=== PATIENT | female | born 1960 | race Caucasian/White ===

== ENCOUNTER 2020-06-12 15:41 | Inpatient (IN) | payer OTHER, SELFPAY ==
--- NOTE | 2020-06-12 16:25 | MHC.CARE ---
CARE team presented to ED waiting room to facilitate transfer/admission to for this patient. CARE team attempted to confirm patient's identity by asking last name and date of . Patient made eye contact but stared blankly. Did not respond verbally despite multiple attempts. insole and outsole preparer confirmed that patient has not been responding to any questions. CARE team explained the CV and patient continued to stare. Unable to complete conditional voluntary at this time. CARE team facilitated completion of section 12b for admission. insole and outsole preparer escorted patient to with CARE team following.
[2020-06-12 17:29] VITALS: BP 129/75; PULSE 63; RESP 18; TEMP 36.6; O2SAT 98
--- NOTE | 2020-06-12 23:09 | PC.ADMIT ---
pt. is a 59 year old white Armenian peaking female who [place] [facility] [place] [facility] from [facility] ed at approx. [id number]. pt. is covid neg., utox negative, she was transported on a 12 a section by ems. she is is a cv, initially she was seen by [facility] crisis. her sister reported pt. od on unknown type and amount of medication. pt. later stated it was likely her dogs medications and she did this in an attempt to end her life. pt. has not been compliant with her medications given by her pcp per [facility]. pt. reported daily panic attacks to the extent of feeling afraid of everything , i don't trust anyone . Pt. stated i feel i can't live anymore . pt. stated worsened anxiety with panic and lack of sleep has caused her to feel like taking her life. pt.s memories of loses and her elderly dog being sick are impacting her ability to cope. pt. has a hx of paranoia, she had 3 prior psych admissions all at [facility] from 2018 until most recently 04/25/20. pt. has two traumatic losses. her daughter at a alliance party in 2006 and pts. passed in 2018. pt. has an adult son and also a grandson whom she helped raise. when pt. came to 5 she was withdrawn, silent with her eyes closed. when t/w ask her questions. pt. was blunted, flat, she was dishevel. pt. cried a few times in between with her eyes closed throughout the attempted admission process. pt. did not want to eat dinner. she did not sign any consent forms, she is on 15 min safety checks, medications were verified by pharmacy and placed by dr. colton oliva.
[2020-06-13 06:02] VITALS: BP 123/65; PULSE 60; RESP 16; TEMP 36.1; O2SAT 95
--- NOTE | 2020-06-13 09:13 | HO.PSYADMNOT ---
HPI Chief Complaint: Major depressive disorder Sources of Information: patient interviewed, chart reviewed and crisis/core team assessment reviewed HPI Narrative: 59 year old woman who was referred for admission by [facility] crisis. She had been brought to [facility] by her sister due to increasing depression. While at the intake it was revealed that she had taken an overdose of her dog's medication. She was taken to [facility] and medically cleared. Individual has been struggling with an increase in depression and paranoia over the last several years. Her daughter was murdered in 2006, her in 2018. Her 's family cut ties with her. She has one adult son who is in contact with her and she has helped raise her daughter's daughter. In the last 2l months she has been hospitalized three times at [facility]. She has not recompensated enough and has been increasingly despairing. On arrival to the unit she was virtually mute. She gave little information though she did warm up. She has been taking very poor care of herself, with poor ADLs and poor intake. She is unable to say whether medications have helped. Past Psychiatric History: 3 admissions to [facility] No current providers, according to patient Medical Evaluation Reviewed: Hospitalist Lynn Pending [facility] Family History: Unknown Social History: Works at [employer] as PT Lives with her grand-daughter Substance History: Denies Trauma History: Significant losses Diagnostics Vital Signs (24Hr): Vital Signs - 24 hr 06/12/20 17:29 06/13/20 06:02 Temperature 97.8 F 96.9 F Pulse Rate 63 60 Respiratory Rate 18 16 Blood Pressure 129/75 123/65 Pulse Oximetry 98 95 Meds/Allergies Meds Home Medications Medication Instructions Recorded Confirmed Type No Known Home Meds 06/12/20 06/12/20 History aripiprazole 1 tab PO DAILY 06/12/20 06/12/20 History lisinopril 1 tab PO DAILY 06/12/20 06/12/20 History lisinopril-hydrochlorothiazide 1 tab PO DAILY 06/12/20 06/12/20 History lorazepam 1 tab PO BID 06/12/20 06/12/20 History pravastatin 10 mg PO DAILY 06/12/20 06/12/20 History sertraline 100 mg PO DAILY 06/12/20 06/12/20 History Allergies Allergies Allergy/AdvReac Type Severity Reaction Status Date / Time No Known Allergies Allergy Verified 06/13/20 09:35 Mental Status Exam Mental Status Exam Patient Appearance: Fatigued and Disheveled Patient Orientation: Person and Place Level of Consciousness: Drowsy Patient Behavior: Guarded, Passive and Timid Mood Description: Suspicious Affect Description: Suspicious and Constricted Ability to Follow Directions: Fair Speech Pattern: Impoverished and Soft-Spoken Hallucinations: None Delusions: Paranoid Ideation Thought Process: Rumination and Slowed Thinking Thought Content: positive for Circumstantial, negative for Suicidal Ideation and negative for Homicidal Ideation Depressive Symptoms: Diff. Making Decisions, Crying Spells, Loss of Int. in Activity, Feelings of Worthlessness, Hopelessness, Unhappiness and Thoughts of /Suicide Abnormal Motor Activity Signs and Symptoms: Psychomotor Retardation Judgement: Poor Assessment & Plan Assessment & Plan (1) Major depressive disorder, recurrent severe without psychotic features: Status: Acute Code(s): F33.2 - Major depressive disorder, recurrent severe without psychotic features Assessment and Plan: Increase sertraline Add seroquel Collect collateral history Patient educated on: diagnosis and medication risk/benefits Informed Consent: further education needed Reason for continued inpatient stay Substantial Risk for: harm to self, inability to function and rapid decompensation
[2020-06-13 09:35] VITALS: BMI 35.4
[2020-06-13] MEDS: LORazepam 1 MG TABLET PO ×2 (12:01→21:24)
[2020-06-13] MEDS: Sertraline HCL 50 MG TABLET 150 MG PO (14:12)
[2020-06-13 14:13] VITALS: BP 104/64; PULSE 77
[2020-06-13] MEDS: Pravastatin Sodium 40 MG TABLET PO (14:13)
[2020-06-13 18:00] VITALS: BP 121/68; PULSE 68; TEMP 36.7
--- NOTE | 2020-06-13 20:19 | PM.IMCN ---
History of Present Illness Data of Consult Service Date: 06/13/20 Requesting physician: Missy Hairston Primary Care Provider: Meera Rossi MD [facility] Reason for consult: Medical consult 59-year-old woman admitted to for behavioral health. She has a history of hypertension and hyperlipidemia. At this time she has no acute medical problems. She denies chest pain, shortness of breath, nausea, vomiting. She has been able to eat and drink. Her vital signs are stable. Review of Systems Review of Systems: Denies any recent fever chills or decrease in appetite respiratory denies any shortness of breath coverage production cardiovascular no chest pain gastrointestinal no abdominal pain nausea vomiting or diarrhea musculoskeletal chronic left knee pain all other systems reviewed are negative [facility] Medical History (Updated 06/13/20 @ 20:28 by Shazia Thibodeaux NP) Depression HTN (hypertension), benign Hyperlipidemia Functional capacity: independent ambulation Family History (Updated 06/13/20 @ 20:30 by Shazia Thibodeaux NP) Other CAD (coronary artery disease) Cancer Diabetes mellitus Surgical History (Updated 06/13/20 @ 20:29 by Shazia Thibodeaux NP) H/O tubal ligation Social History Household Members: Other Household Members Other:: grandson Housing: House Do you presently have visiting nurse or other home services: No Smoking Status: Former smoker Smoking Quit Date: 2009 Use of substances other than those prescribed or required for medical reasons: No Currently Displaying Signs/Symptoms of Drug Intoxication Withdrawal: No Have you been hit, kicked, punched, or otherwise hurt by someone within the past year? If so, by whom?: No Do you feel safe in your current relationship?: No Current Relationship Is there a partner from a previous relationship who is making you feel unsafe now?: No Are you made to feel afraid or neglected: No [facility] Practices: [facility] Advance Directives: No Advance Directives Information Provided: Yes Do you have thoughts of harming others: None Do you have a plan to hurt others: No Plan Recently lost weight without trying: No service: No Sexual orientation: Straight/Heterosexual Meds Allergies Allergy/AdvReac Type Severity Reaction Status Date / Time No Known Allergies Allergy Verified 06/13/20 09:35 Home Medications Medication Instructions Recorded Confirmed Type No Known Home Meds 06/12/20 06/12/20 History aripiprazole 1 tab PO DAILY 06/12/20 06/12/20 History lisinopril 1 tab PO DAILY 06/12/20 06/12/20 History lisinopril-hydrochlorothiazide 1 tab PO DAILY 06/12/20 06/12/20 History lorazepam 1 tab PO BID 06/12/20 06/12/20 History pravastatin 10 mg PO DAILY 06/12/20 06/12/20 History sertraline 100 mg PO DAILY 06/12/20 06/12/20 History Physical Exam Vital Signs and Narrative: Vital Signs: Last Vital Signs Temp 96.9 F 06/13/20 06:02 Pulse 77 06/13/20 14:13 Resp 16 06/13/20 06:02 BP 104/64 06/13/20 14:13 Pulse Ox 95 06/13/20 06:02 Body Mass Index 35.4 Assessment and Plan (1) Major depressive disorder, recurrent severe without psychotic features: Status: Acute 59-year-old woman admitted to for psychiatric care. No acute medical problems. Depression. Management as per psychiatric team. Hypertension. Follow blood pressure closely continue lisinopril and hydrochlorothiazide. Avoid hypotension. Hyperlipidemia. Continue statin. Discussed with Dr. Hurtado
[2020-06-13] MEDS: QUEtiapine Fumarate 100 MG TABLET PO (21:24)
[2020-06-14 06:07] VITALS: BP 114/59; PULSE 58; RESP 16; TEMP 36.2; O2SAT 95
[2020-06-14 08:52] VITALS: BP 114/59; PULSE 58
[2020-06-14] MEDS: lisinopriL 20 MG TABLET PO (08:52)
[2020-06-14] MEDS: Pravastatin Sodium 40 MG TABLET PO (08:52)
[2020-06-14] MEDS: Sertraline HCL 50 MG TABLET 150 MG PO (08:54)
--- NOTE | 2020-06-14 09:04 | HO.PSYCHPN ---
Subjective Subjective Date of Service: 06/14/20 Reason For Visit: Major depressive disorder Subjective Notes: Conditional Voluntary Interim History: Francine was able to get up and out of bed today. She reports that she slept well, took a shower and is eating. She has not gone to groups. She is not able to expand on her psychopharmacology history. She has used the same pharmacy for many years and we will attempt to get history. Given the depth of her depression we began a discussion about ECT. SW is trying to get collateral records from [facility] Review of Systems Acute medical concerns: No Medical Review of Systems: unchanged Mental Status Exam Mental Status Exam Patient Appearance: Fatigued and Disheveled Patient Orientation: Person and Place Level of Consciousness: Drowsy Patient Behavior: Guarded, Passive and Timid Mood Description: Suspicious Affect Description: Suspicious and Constricted Ability to Follow Directions: Fair Speech Pattern: Impoverished and Soft-Spoken Hallucinations: None Delusions: Paranoid Ideation Thought Process: Rumination and Slowed Thinking Thought Content: positive for Circumstantial, negative for Suicidal Ideation and negative for Homicidal Ideation Depressive Symptoms: Diff. Making Decisions, Crying Spells, Loss of Int. in Activity, Feelings of Worthlessness, Hopelessness, Unhappiness and Thoughts of /Suicide Abnormal Motor Activity Signs and Symptoms: Psychomotor Retardation Judgement: Poor Diagnostics Vital Signs (24Hr): Vital Signs - 24 hr 06/13/20 14:13 06/13/20 18:00 06/14/20 06:07 Temperature 98.0 F 97.1 F Pulse Rate 77 68 58 Respiratory Rate 16 Blood Pressure 104/64 121/68 114/59 L Pulse Oximetry 95 06/14/20 08:52 Temperature Pulse Rate 58 Respiratory Rate Blood Pressure 114/59 L Pulse Oximetry Body Mass Index 35.4 Medications Medications Current Medications Generic Name Dose Route Start Last Admin Trade Name Freq PRN Reason Stop Dose Admin Acetaminophen 650 mg 06/13/20 11:34 Acetaminophen 325 Mg Tablet PO Q6H PRN Headache/Pain Mild Scale (1-3) Al Hydroxide/Mg Hydroxide 30 ml 06/13/20 11:34 Magnesium Hydrox/Alum Hydrox 30 Ml Oral.Susp PO Q6H PRN Heartburn/Nausea Hydrochlorothiazide 12.5 mg 06/13/20 12:15 06/13/20 14:13 Hydrochlorothiazide 12.5 Mg Tablet PO Not Given DAILY JOSEY Protocol Hydroxyzine HCl 25 mg 06/13/20 11:34 Hydroxyzine Hcl 25 Mg Tablet PO BEDTIME PRN Anxiety Lisinopril 20 mg 06/13/20 12:15 06/14/20 08:52 Lisinopril 20 Mg Tablet PO 20 mg DAILY JOSEY Administration Protocol Lorazepam 1 mg 06/13/20 11:45 06/13/20 21:24 Lorazepam 1 Mg Tablet PO 1 mg BID JOSEY Administration Magnesium Hydroxide 30 ml 06/13/20 11:34 Milk Of Magnesia 30 Ml Oral.Susp PO DAILY PRN Constipation Pravastatin Sodium 40 mg 06/13/20 12:15 06/14/20 08:52 Pravastatin Sodium 40 Mg Tablet PO 40 mg DAILY JOSEY Administration Quetiapine Fumarate 100 mg 06/13/20 21:00 06/13/20 21:24 Quetiapine Fumarate 100 Mg Tablet PO 100 mg BEDTIME MRX1 JOSEY Administration Sertraline HCl 150 mg 06/14/20 09:00 06/14/20 08:54 Sertraline Hcl 50 Mg Tablet PO 150 mg DAILY JOSEY Administration Trazodone HCl 50 mg 06/13/20 11:34 Trazodone Hcl 50 Mg Tablet PO BEDTIME PRN Insomnia Allergies Allergies Allergy/AdvReac Type Severity Reaction Status Date / Time No Known Allergies Allergy Verified 06/13/20 09:35 Assessment & Plan Greater than 50% of the session was spent on counseling and/or coordination of care
[2020-06-14 09:20] LABS: Estimated Average Glucose 111 mg/dL; Hemoglobin A1C 131.8967 umol/L; Hemoglobin A1c % 5.5 %
[2020-06-14 09:21] LABS: Cholesterol 223 mg/dL; HDL Cholesterol 48 mg/dL; LDL Cholesterol Calculated 155 mg/dl; Triglycerides 103 mg/dL
[2020-06-14] MEDS: LORazepam 1 MG TABLET PO ×2 (17:32→21:47)
[2020-06-14 17:46] VITALS: BP 131/79; PULSE 76; TEMP 36.7
[2020-06-14] MEDS: QUEtiapine Fumarate 100 MG TABLET PO (21:47)
--- NOTE | 2020-06-14 23:15 | PC.NURSE ---
Pt signed a 3-day notice revoking conditional voluntary today 06/14/20 and is up Wednesday06/19/20. All parties are informed.
[2020-06-15 06:20] VITALS: BP 120/71; PULSE 60; RESP 18; TEMP 36.3
[2020-06-15] MEDS: hydroCHLOROthiazide 12.5 MG TABLET PO (09:20)
[2020-06-15] MEDS: Sertraline HCL 50 MG TABLET 150 MG PO (09:20)
[2020-06-15 09:21] VITALS: BP 120/71; PULSE 60
[2020-06-15] MEDS: lisinopriL 20 MG TABLET PO (09:21)
[2020-06-15] MEDS: Pravastatin Sodium 40 MG TABLET PO (09:22)
--- NOTE | 2020-06-15 11:38 | HO.PSYCHPN ---
Subjective Subjective Reason For Visit: Major depressive disorder Interim History: Francine reporting she is very sleepy in am;she did get up and walk slowly in hallway; she spoke very softly and there is poverty of thoughts. She reports that she slept well and is eating. She has not gone to groups. She is not able to expand on her psychopharmacology history. She has used the same pharmacy for many years and we will attempt to get history. Given the depth of her depression we began a discussion about ECT. SW is trying to get collateral records from [facility] Review of Systems Review of Systems no change Mental Status Exam Mental Status Exam Patient Appearance: Fatigued and Disheveled Patient Orientation: Person and Place Level of Consciousness: Drowsy Patient Behavior: Guarded, Passive and Timid Mood Description: Suspicious Affect Description: Suspicious and Constricted Ability to Follow Directions: Fair Speech Pattern: Impoverished and Soft-Spoken Diagnostics Vital Signs (24Hr): Vital Signs - 24 hr 06/14/20 17:46 06/15/20 06:20 06/15/20 09:21 Temperature 98.1 F 97.4 F Pulse Rate 76 60 60 Respiratory Rate 18 Blood Pressure 131/79 120/71 120/71 Body Mass Index 35.4 Labs Labs: Laboratory Results - last 48 hr 06/14/20 06/14/20 08:27 08:27 Estimat Average Glucose 111 Hemoglobin A1c % 5.5 Triglycerides 103 Cholesterol 223 LDL Cholesterol, Calc 155 HDL Cholesterol 48 Medications Medications Current Medications Generic Name Dose Route Start Last Admin Trade Name Freq PRN Reason Stop Dose Admin Acetaminophen 650 mg 06/13/20 11:34 Acetaminophen 325 Mg Tablet PO Q6H PRN Headache/Pain Mild Scale (1-3) Al Hydroxide/Mg Hydroxide 30 ml 06/13/20 11:34 Magnesium Hydrox/Alum Hydrox 30 Ml Oral.Susp PO Q6H PRN Heartburn/Nausea Hydrochlorothiazide 12.5 mg 06/13/20 12:15 06/15/20 09:20 Hydrochlorothiazide 12.5 Mg Tablet PO 12.5 mg DAILY JOSEY Administration Protocol Hydroxyzine HCl 25 mg 06/13/20 11:34 Hydroxyzine Hcl 25 Mg Tablet PO BEDTIME PRN Anxiety Lisinopril 20 mg 06/13/20 12:15 06/15/20 09:21 Lisinopril 20 Mg Tablet PO 20 mg DAILY JOSEY Administration Protocol Lorazepam 1 mg 06/13/20 11:45 06/15/20 09:51 Lorazepam 1 Mg Tablet PO Not Given BID JOSEY Lorazepam 1 mg 06/14/20 17:10 06/14/20 17:32 Lorazepam 1 Mg Tablet PO 1 mg Q4H PRN Administration Anxiety Magnesium Hydroxide 30 ml 06/13/20 11:34 Milk Of Magnesia 30 Ml Oral.Susp PO DAILY PRN Constipation Pravastatin Sodium 40 mg 06/13/20 12:15 06/15/20 09:22 Pravastatin Sodium 40 Mg Tablet PO 40 mg DAILY JOSEY Administration Quetiapine Fumarate 100 mg 06/13/20 21:00 06/15/20 06:25 Quetiapine Fumarate 100 Mg Tablet PO Not Given BEDTIME MRX1 JOSEY Sertraline HCl 150 mg 06/14/20 09:00 06/15/20 09:20 Sertraline Hcl 50 Mg Tablet PO 150 mg DAILY JOSEY Administration Trazodone HCl 50 mg 06/13/20 11:34 Trazodone Hcl 50 Mg Tablet PO BEDTIME PRN Insomnia Allergies Allergies Allergy/AdvReac Type Severity Reaction Status Date / Time No Known Allergies Allergy Verified 06/13/20 09:35 Assessment & Plan Assessment & Plan (1) Major depressive disorder, recurrent severe without psychotic features: Status: Acute Code(s): F33.2 - Major depressive disorder, recurrent severe without psychotic features Assessment and Plan: 59-year-old woman admitted to for psychiatric care. No acute medical problems. Depression. Management as per psychiatric team. reduce ativan from 1 mg BID to 0.5 mg TID to reduce daytime sleepines. Hypertension. Follow blood pressure closely continue lisinopril and hydrochlorothiazide. Avoid hypotension. Hyperlipidemia. Continue statin. Greater than 50% of the session was spent on counseling and/or coordination of care
[2020-06-15] MEDS: LORazepam 1 MG TABLET 0.5 MG PO ×2 (14:28→21:10)
[2020-06-15 16:20] VITALS: BP 113/59; PULSE 69; TEMP 36.4
[2020-06-15] MEDS: QUEtiapine Fumarate 100 MG TABLET PO (21:09)
[2020-06-16 06:05] VITALS: BP 149/77; PULSE 63; RESP 18; TEMP 36; O2SAT 96
[2020-06-16] MEDS: hydroCHLOROthiazide 12.5 MG TABLET PO (08:33)
[2020-06-16] MEDS: Pravastatin Sodium 40 MG TABLET PO (08:34)
[2020-06-16] MEDS: Sertraline HCL 50 MG TABLET 150 MG PO (08:34)
[2020-06-16 08:35] VITALS: BP 149/77; PULSE 63
[2020-06-16] MEDS: lisinopriL 20 MG TABLET PO (08:35)
--- NOTE | 2020-06-16 12:02 | HO.PSYCHPN ---
Subjective Subjective Reason For Visit: Major depressive disorder Interim History: Francine very soft spoken today; She is out of bed and dressed; she states the depression comes and goes; she gets very slent when asked more about the depression; she reports anxiety is decreased; she may have some thought blocking. She reports that she slept well and is eating. Review of Systems Review of Systems no changes Mental Status Exam Mental Status Exam Patient Appearance: Fatigued and Disheveled Patient Orientation: Person and Place Level of Consciousness: Drowsy Patient Behavior: Guarded, Passive and Timid Mood Description: Withdrawn, Constricted, Depressed, Anxious and Blunted Affect Description: Suspicious and Constricted Ability to Follow Directions: Fair Speech Pattern: Impoverished, Soft-Spoken and Long Pauses Thought Process: Slowed Thinking Thought Content: positive for Poverty of Content and positive for Slowed Thinking Depressive Symptoms: Increased Anxiety, Feelings of Worthlessness, Hopelessness, Loss of Energy and Difficulty Concentrating Judgement: Fair Diagnostics Vital Signs (24Hr): Vital Signs - 24 hr 06/15/20 16:20 06/16/20 06:05 06/16/20 08:35 Temperature 97.5 F 96.8 F Pulse Rate 69 63 63 Respiratory Rate 18 Blood Pressure 113/59 L 149/77 H 149/77 H Pulse Oximetry 96 Body Mass Index 35.4 Medications Medications Current Medications Generic Name Dose Route Start Last Admin Trade Name Freq PRN Reason Stop Dose Admin Acetaminophen 650 mg 06/13/20 11:34 Acetaminophen 325 Mg Tablet PO Q6H PRN Headache/Pain Mild Scale (1-3) Al Hydroxide/Mg Hydroxide 30 ml 06/13/20 11:34 Magnesium Hydrox/Alum Hydrox 30 Ml Oral.Susp PO Q6H PRN Heartburn/Nausea Hydrochlorothiazide 12.5 mg 06/13/20 12:15 06/16/20 08:33 Hydrochlorothiazide 12.5 Mg Tablet PO 12.5 mg DAILY JOSEY Administration Protocol Hydroxyzine HCl 25 mg 06/13/20 11:34 Hydroxyzine Hcl 25 Mg Tablet PO BEDTIME PRN Anxiety Lisinopril 20 mg 06/13/20 12:15 06/16/20 08:35 Lisinopril 20 Mg Tablet PO 20 mg DAILY JOSEY Administration Protocol Lorazepam 1 mg 06/14/20 17:10 06/14/20 17:32 Lorazepam 1 Mg Tablet PO 1 mg Q4H PRN Administration Anxiety Lorazepam 0.5 mg 06/15/20 15:00 06/16/20 08:57 Lorazepam 1 Mg Tablet PO Not Given TID JOSEY Magnesium Hydroxide 30 ml 06/13/20 11:34 Milk Of Magnesia 30 Ml Oral.Susp PO DAILY PRN Constipation Pravastatin Sodium 40 mg 06/13/20 12:15 06/16/20 08:34 Pravastatin Sodium 40 Mg Tablet PO 40 mg DAILY JOSEY Administration Quetiapine Fumarate 100 mg 06/13/20 21:00 06/16/20 04:30 Quetiapine Fumarate 100 Mg Tablet PO Not Given BEDTIME MRX1 JOSEY Sertraline HCl 150 mg 06/14/20 09:00 06/16/20 08:34 Sertraline Hcl 50 Mg Tablet PO 150 mg DAILY JOSEY Administration Trazodone HCl 50 mg 06/13/20 11:34 Trazodone Hcl 50 Mg Tablet PO BEDTIME PRN Insomnia Allergies Allergies Allergy/AdvReac Type Severity Reaction Status Date / Time No Known Allergies Allergy Verified 06/13/20 09:35 Assessment & Plan Assessment & Plan (1) Major depressive disorder, recurrent severe without psychotic features: Status: Acute Code(s): F33.2 - Major depressive disorder, recurrent severe without psychotic features Assessment and Plan: 59-year-old woman admitted to for psychiatric care. No acute medical problems. Depression. Management as per psychiatric team. Continue current medications Hypertension. Follow blood pressure closely continue lisinopril and hydrochlorothiazide. Avoid hypotension. Hyperlipidemia. Continue statin. Greater than 50% of the session was spent on counseling and/or coordination of care Patient educated on: medication risk/benefits and medical condition (cholesterol management - discussed at her request- diet/exercise ) Informed Consent: further education needed Reason for contiued inpatient stay Substantial Risk for: inability to function and med/psych decompensation
[2020-06-16] MEDS: LORazepam 1 MG TABLET 0.5 MG PO ×2 (14:30→21:45)
[2020-06-16 19:24] VITALS: BP 120/56; PULSE 69; TEMP 37.1
[2020-06-16] MEDS: QUEtiapine Fumarate 100 MG TABLET PO (21:44)
[2020-06-17 06:00] VITALS: BP 141/77; PULSE 57; RESP 16; TEMP 36.6
--- NOTE | 2020-06-17 09:13 | HO.PSYCHPN ---
Subjective Subjective Date of Service: 06/17/20 Reason For Visit: Major depressive disorder Subjective Notes: Conditional Voluntary Interim History: Francine very soft spoken today. She is out of bed and dressed. She states the depression comes and goes. She is not sure if she wants to stay in the hospital since she missed her dog. She denies SI. We discussed options such as PHP. She reports that she slept well and is eating. Medication Compliance: Yes Side effects from medications: No Attending Groups: Intermittent Review of Systems Acute medical concerns: No Medical Review of Systems: unchanged Mental Status Exam Mental Status Exam Patient Appearance: Fatigued and Disheveled Patient Orientation: Person and Place Level of Consciousness: Drowsy Patient Behavior: Guarded, Passive and Timid Mood Description: Withdrawn, Constricted, Depressed, Anxious and Blunted Affect Description: Suspicious and Constricted Ability to Follow Directions: Fair Speech Pattern: Impoverished, Soft-Spoken and Long Pauses Thought Process: Slowed Thinking Thought Content: positive for Poverty of Content and positive for Slowed Thinking Depressive Symptoms: Increased Anxiety, Feelings of Worthlessness, Hopelessness, Loss of Energy and Difficulty Concentrating Judgement: Fair Diagnostics Vital Signs (24Hr): Vital Signs - 24 hr 06/16/20 19:24 06/17/20 06:00 Temperature 98.8 F 97.9 F Pulse Rate 69 57 Respiratory Rate 16 Blood Pressure 120/56 L 141/77 H Body Mass Index 35.4 Medications Medications Current Medications Generic Name Dose Route Start Last Admin Trade Name Freq PRN Reason Stop Dose Admin Acetaminophen 650 mg 06/13/20 11:34 Acetaminophen 325 Mg Tablet PO Q6H PRN Headache/Pain Mild Scale (1-3) Al Hydroxide/Mg Hydroxide 30 ml 06/13/20 11:34 Magnesium Hydrox/Alum Hydrox 30 Ml Oral.Susp PO Q6H PRN Heartburn/Nausea Hydrochlorothiazide 12.5 mg 06/13/20 12:15 06/16/20 08:33 Hydrochlorothiazide 12.5 Mg Tablet PO 12.5 mg DAILY JOSEY Administration Protocol Hydroxyzine HCl 25 mg 06/13/20 11:34 Hydroxyzine Hcl 25 Mg Tablet PO BEDTIME PRN Anxiety Lisinopril 20 mg 06/13/20 12:15 06/16/20 08:35 Lisinopril 20 Mg Tablet PO 20 mg DAILY JOSEY Administration Protocol Lorazepam 1 mg 06/14/20 17:10 06/14/20 17:32 Lorazepam 1 Mg Tablet PO 1 mg Q4H PRN Administration Anxiety Lorazepam 0.5 mg 06/17/20 09:00 Lorazepam 0.5 Mg Tablet PO TID JOSEY Magnesium Hydroxide 30 ml 06/13/20 11:34 Milk Of Magnesia 30 Ml Oral.Susp PO DAILY PRN Constipation Pravastatin Sodium 40 mg 06/13/20 12:15 06/16/20 08:34 Pravastatin Sodium 40 Mg Tablet PO 40 mg DAILY JOSEY Administration Quetiapine Fumarate 100 mg 06/13/20 21:00 06/17/20 06:24 Quetiapine Fumarate 100 Mg Tablet PO Not Given BEDTIME MRX1 JOSEY Sertraline HCl 150 mg 06/14/20 09:00 06/16/20 08:34 Sertraline Hcl 50 Mg Tablet PO 150 mg DAILY JOSEY Administration Trazodone HCl 50 mg 06/13/20 11:34 Trazodone Hcl 50 Mg Tablet PO BEDTIME PRN Insomnia Allergies Allergies Allergy/AdvReac Type Severity Reaction Status Date / Time No Known Allergies Allergy Verified 06/13/20 09:35 Assessment & Plan Assessment & Plan (1) Major depressive disorder, recurrent severe without psychotic features: Status: Acute Code(s): F33.2 - Major depressive disorder, recurrent severe without psychotic features Assessment and Plan: Increase sertraline Investigate support options Greater than 50% of the session was spent on counseling and/or coordination of care Patient educated on: diagnosis, medication risk/benefits and therapeutic strategies Informed Consent: further education needed Reason for contiued inpatient stay Substantial Risk for: inability to function and rapid decompensation
[2020-06-17] MEDS: LORazepam 0.5 MG TABLET PO ×3 (09:47→20:57)
[2020-06-17] MEDS: hydroCHLOROthiazide 12.5 MG TABLET PO (09:47)
[2020-06-17 10:07] VITALS: BP 141/77; PULSE 57
[2020-06-17] MEDS: lisinopriL 20 MG TABLET PO (10:07)
[2020-06-17] MEDS: Pravastatin Sodium 40 MG TABLET PO (10:08)
[2020-06-17] MEDS: Sertraline HCL 50 MG TABLET 150 MG PO (10:08)
[2020-06-17 18:00] VITALS: BP 145/64; PULSE 66; TEMP 36
[2020-06-17] MEDS: QUEtiapine Fumarate 100 MG TABLET PO (20:57)
[2020-06-18 06:00] VITALS: BP 139/77; PULSE 57; TEMP 36.4
[2020-06-18] MEDS: Pravastatin Sodium 40 MG TABLET PO (08:43)
[2020-06-18] MEDS: LORazepam 0.5 MG TABLET PO ×3 (08:43→21:43)
[2020-06-18 08:44] VITALS: BP 139/77; PULSE 57
[2020-06-18] MEDS: Sertraline HCL 50 MG TABLET 200 MG PO (08:44)
[2020-06-18] MEDS: lisinopriL 20 MG TABLET PO (08:44)
[2020-06-18] MEDS: hydroCHLOROthiazide 12.5 MG TABLET PO (08:45)
--- NOTE | 2020-06-18 13:50 | HO.PSYCHPN ---
Subjective Subjective Date of Service: 06/17/20 Reason For Visit: Major depressive disorder Subjective Notes: Conditional Voluntary Interim History: Francine very soft spoken today. She is out of bed and dressed. She states the depression comes and goes. She is not sure if she wants to stay in the hospital since she missed her dog. She denies SI. She wavers as to whether she wants to leave or not. Pros and cons were reviewed. We discussed options such as PHP. She is still thinking about whether she wants to go to this. She reports that she slept well and is eating. Medication Compliance: Yes Side effects from medications: No Attending Groups: Intermittent Review of Systems Acute medical concerns: No Medical Review of Systems: unchanged Mental Status Exam Mental Status Exam Patient Appearance: Fatigued and Disheveled Patient Orientation: Person and Place Level of Consciousness: Drowsy Patient Behavior: Guarded, Passive and Timid Mood Description: Withdrawn, Constricted, Depressed, Anxious and Blunted Affect Description: Suspicious and Constricted Ability to Follow Directions: Fair Speech Pattern: Impoverished, Soft-Spoken and Long Pauses Thought Process: Slowed Thinking Thought Content: positive for Poverty of Content, positive for Slowed Thinking, negative for Suicidal Ideation and negative for Homicidal Ideation Depressive Symptoms: Increased Anxiety, Feelings of Worthlessness, Hopelessness, Loss of Energy and Difficulty Concentrating Judgement: Fair Diagnostics Vital Signs (24Hr): Vital Signs - 24 hr 06/17/20 18:00 06/18/20 06:00 06/18/20 08:44 Temperature 96.8 F 97.6 F Pulse Rate 66 57 57 Blood Pressure 145/64 H 139/77 139/77 Body Mass Index 35.4 Medications Medications Current Medications Generic Name Dose Route Start Last Admin Trade Name Freq PRN Reason Stop Dose Admin Acetaminophen 650 mg 06/13/20 11:34 Acetaminophen 325 Mg Tablet PO Q6H PRN Headache/Pain Mild Scale (1-3) Al Hydroxide/Mg Hydroxide 30 ml 06/13/20 11:34 Magnesium Hydrox/Alum Hydrox 30 Ml Oral.Susp PO Q6H PRN Heartburn/Nausea Hydrochlorothiazide 12.5 mg 06/13/20 12:15 06/18/20 08:45 Hydrochlorothiazide 12.5 Mg Tablet PO 12.5 mg DAILY JOSEY Administration Protocol Hydroxyzine HCl 25 mg 06/13/20 11:34 Hydroxyzine Hcl 25 Mg Tablet PO BEDTIME PRN Anxiety Lisinopril 20 mg 06/13/20 12:15 06/18/20 08:44 Lisinopril 20 Mg Tablet PO 20 mg DAILY JOSEY Administration Protocol Lorazepam 1 mg 06/14/20 17:10 06/14/20 17:32 Lorazepam 1 Mg Tablet PO 1 mg Q4H PRN Administration Anxiety Lorazepam 0.5 mg 06/17/20 09:00 06/18/20 08:43 Lorazepam 0.5 Mg Tablet PO 0.5 mg TID JOSEY Administration Magnesium Hydroxide 30 ml 06/13/20 11:34 Milk Of Magnesia 30 Ml Oral.Susp PO DAILY PRN Constipation Pravastatin Sodium 40 mg 06/13/20 12:15 06/18/20 08:43 Pravastatin Sodium 40 Mg Tablet PO 40 mg DAILY JOSEY Administration Quetiapine Fumarate 100 mg 06/13/20 21:00 06/18/20 08:46 Quetiapine Fumarate 100 Mg Tablet PO Not Given BEDTIME MRX1 JOSEY Sertraline HCl 200 mg 06/18/20 09:00 06/18/20 08:44 Sertraline Hcl 50 Mg Tablet PO 200 mg DAILY JOSEY Administration Trazodone HCl 50 mg 06/13/20 11:34 Trazodone Hcl 50 Mg Tablet PO BEDTIME PRN Insomnia Allergies Allergies Allergy/AdvReac Type Severity Reaction Status Date / Time No Known Allergies Allergy Verified 06/13/20 09:35 Assessment & Plan Assessment & Plan (1) Major depressive disorder, recurrent severe without psychotic features: Status: Acute Code(s): F33.2 - Major depressive disorder, recurrent severe without psychotic features Assessment and Plan: CT medication without change Consider PHP Greater than 50% of the session was spent on counseling and/or coordination of care Patient educated on: diagnosis and medication risk/benefits Informed Consent: further education needed Reason for contiued inpatient stay Substantial Risk for: rapid decompensation
[2020-06-18 17:01] VITALS: BP 125/77; PULSE 72; TEMP 36.4
[2020-06-18] MEDS: QUEtiapine Fumarate 100 MG TABLET PO (21:43)
[2020-06-19 06:15] VITALS: BP 107/66; PULSE 56; RESP 18; TEMP 36.2
[2020-06-19] MEDS: Sertraline HCL 50 MG TABLET 200 MG PO (08:42)
[2020-06-19 08:43] VITALS: BP 107/66; PULSE 56
[2020-06-19] MEDS: lisinopriL 20 MG TABLET PO (08:43)
[2020-06-19] MEDS: Pravastatin Sodium 40 MG TABLET PO (08:43)
[2020-06-19] MEDS: hydroCHLOROthiazide 12.5 MG TABLET PO (08:44)
[2020-06-19] MEDS: LORazepam 0.5 MG TABLET PO (08:48)
--- NOTE | 2020-06-19 09:22 | PM.PSYDC ---
DS: Providers Provider Date of admission: 06/12/20 15:41 Date of discharge: 06/19/20 Primary care physician: Meera Rossi MD Attending physician on admission: Missy Hairston Consults: 06/13/20 11:34 Consult to Hospitalist Routine Consulting Provider: Hospitalist Reason for consultation: Protocol Has provider been notified: No Attending physician on discharge: Missy Hairston DS: Diagnosis Discharge Diagnosis (1) Major depressive disorder, recurrent severe without psychotic features: Status: Acute DS: Medications Discharge Medications Home Medications: Previous Rx's Medication Instructions Recorded lisinopril-hydrochlorothiazide 1 tab PO DAILY #30 tab 06/19/20 lorazepam 0.5 mg PO TID #90 tab 06/19/20 pravastatin 40 mg PO DAILY #30 tab 06/19/20 quetiapine 100 mg PO BEDTIME MRX1 #30 tab 06/19/20 sertraline 200 mg PO DAILY #60 tab 06/19/20 Discharge Plan Discharge Patient Disposition: Home, Self-Care Referrals: [facility] Partial Hospitalization Program [Other] - 06/20/20 10:00 am (A link to a virtual assessment will be sent to your [facility] address. This is the invitation for the assessment with [facility]. the assessment appointment is on 06/20/20 at 10am. The PHP will start on 06/21/20 at 9am also through a [facility] link. ) Meera Justice MD [Primary Care Provider] - 06/21/20 1:30 pm (VIA TELEVISIT) Discharge Medications: New pravastatin 40 mg Tablet 40 mg PO DAILY Qty: 30 RF: 0 quetiapine 100 mg Tablet 100 mg PO BEDTIME MRX1 Qty: 30 RF: 0 lorazepam 0.5 mg Tablet 0.5 mg PO TID Qty: 90 RF: 0 sertraline 100 mg tablet 200 mg PO DAILY Qty: 60 RF: 0 Continued lisinopril-hydrochlorothiazide 20-12.5 mg tablet 1 tab PO DAILY Qty: 30 RF: 0 Discontinued lisinopril 5 mg tablet 1 tab PO DAILY RF: 0 lorazepam 1 mg tablet 1 tab PO BID RF: 0 aripiprazole 10 mg tablet 1 tab PO DAILY RF: 0 pravastatin 10 mg 10 mg PO DAILY RF: 0 sertraline 100 MG 100 mg PO DAILY RF: 0 Discharge Orders: Discharge Order (Routine); Ordered 06/19/20 Ordered By: Missy Hairston Diet: advance to usual diet Activity on Discharge: As tolerated Discharge Date/Time: 06/19/20 13:29 Visit Report Forms: Patient Portal Discharge page Care Plan Goals: Reduce depression Health Concerns: Depressed mood Isolation Paranoia Plan of Treatment: CT medication Go to your FU appointments Consider Partial Hospital Program for additional support Mental Status Exam Mental Status Exam Patient Appearance: Fatigued and Disheveled Patient Orientation: Person and Place Level of Consciousness: Drowsy Patient Behavior: Guarded, Passive and Timid Mood Description: Withdrawn, Constricted, Depressed, Anxious and Blunted Affect Description: Suspicious and Constricted Ability to Follow Directions: Fair Speech Pattern: Impoverished, Soft-Spoken and Long Pauses Thought Process: Slowed Thinking Thought Content: positive for Poverty of Content, positive for Slowed Thinking, negative for Suicidal Ideation and negative for Homicidal Ideation Depressive Symptoms: Increased Anxiety, Feelings of Worthlessness, Hopelessness, Loss of Energy and Difficulty Concentrating Judgement: Fair Data Data Completed and Pending Completed studies during hospitalization [Text1]: 06/14/20 06/14/20 08:27 08:27 Estimat Average Glucose 111 Hemoglobin A1c % 5.5 Triglycerides 103 Cholesterol 223 LDL Cholesterol, Calc 155 HDL Cholesterol 48 DS: Summary Hospital Course Hospital Course: 59 year old woman who was referred for admission by [facility]. She had been brought to [facility] by her sister due to increasing depression. While at the intake it was revealed that she had taken an overdose of her dog's medication. She was taken to [facility] and medically cleared. Individual has been struggling with an increase in depression and paranoia over the last several years. Her daughter was murdered in 2006, her in 2018. Her 's family cut ties with her. She has one adult son who is in contact with her and she has helped raise her daughter's daughter. In the last 2l months she has been hospitalized three times at [facility]. She has not recompensated enough and has been increasingly despairing. On arrival to the unit she was virtually mute. She gave little information though she did warm up. She has been taking very poor care of herself, with poor ADLs and poor intake. She is unable to say whether medications have helped. Past Psychiatric History: 3 admissions to [facility] No current providers, according to patient Francine was admitted and she signed a CV. She later submitted a 3 day notice. Initially she was almost mute, and had difficulty expressing herself. She refused abilify which records suggested had been helpful. She did agree to increase sertraline, seroquel for sleep and low dose ativan. She submitted the three day because she wanted to be home with her dog and grandson. She also felt nervous on the unit. She has improved to the point of having no SI, and of being up and engaged on the unit. There was no paranoia. She was not at imminent risk hence the 3 day notice was honored. She reulctantly agreed to a referral to [facility] Status at Discharge Functional status at discharge: independent ambulation Overall status at discharge: patient is progressing back to baseline Time Spent with Patient Time attestation: Total time spent providing and/or coordinating discharge services:
== END 2020-06-19 13:29 | disposition home or self-care (01) | DRG 751 ==
PROVIDERS: Admitting Provider Psychiatry & Neurology Psychiatry; PCP Internal Medicine; Visit Provider Psychiatry & Neurology Psychiatry
DX: F33.2 Major depressive disorder, recurrent severe without psychotic features (principal); E78.5 Hyperlipidemia, unspecified; I10 Essential (primary) hypertension; Z79.899 Other long term (current) drug therapy
CPT/HCPCS: 80061; 83036; 99232